=== PATIENT | female | born 1945 | race Caucasian/White ===

== ENCOUNTER 2016-06-19 14:18 | Outpatient (CLI) ==
--- NOTE | 2016-06-19 15:00 | DI ---
EXAM: Chest two view, frontal and lateral views. HISTORY: Cough. COMPARISON: 11/20/2014. FINDINGS: The heart size is normal. Atherosclerotic calcifications are present. There is no pulmo nary vascular congestion. The lungs are clear. No pleural effusion or pneumothorax is seen. No ac [place] osseous abnormality identified. Since the prior study, there has been no significant interval c daquan. IMPRESSION: No acute cardiopulmonary process.
== END 2016-06-19 14:19 | disposition home or self-care (01) ==
LOC: RAD 14:18
PROVIDERS: ATTEND Family Medicine
DX: R05 Cough (principal)

== ENCOUNTER 2016-10-26 08:55 | Outpatient (CLI) ==
--- NOTE | 2016-10-26 10:08 | MAMMO ---
EXAM: Bilateral digital screening mammogram History: Screening Comparison: Bilateral mammogram 05/22/2015 Findings: MLO and CC views of bilateral breasts demonstrate scattered fibroglandular breast parenchy ma. There are no dominant masses, no suspicious microcalcifications and no architectural distortions Impression: Benign stable mammogram. Recommend followup routine screening mammography in 1 year to d ocument stability. BIRADS 2
== END 2016-10-26 08:56 | disposition home or self-care (01) ==
LOC: RAD 08:55
PROVIDERS: ATTEND Family Medicine
DX: Z12.31 Encounter for screening mammogram for malignant neoplasm of breast (principal)
CPT/HCPCS: 77067

== ENCOUNTER 2017-10-28 10:10 | Outpatient (CLI) ==
--- NOTE | 2017-10-29 07:38 | MAMMO ---
EXAM: Digital screening mammogram with CAD and tomosynthesis HISTORY: Screening mammogram COMPARISON: Mammogram 10/26/2016 and 05/22/2015 FINDINGS: Bilateral CC and MLO views of the breasts were performed digitally and demonstrate heterog eneously dense breast density. Vascular calcifications and benign punctate calcifications are redemon strated and relatively unchanged. There is a small cluster of calcifications in the central left dangelo st 5.4 cm from the nipple. These have changed and increased in comparison to prior study. IMPRESSION: Changing cluster calcifications in the central left breast RECOMMENDATION: Diagnostic left breast mammogram and spot compression views. Ultrasound may be obtained as clinicall y indicated. BIRADS category 0: Needs further evaluation
== END 2017-10-28 10:11 | disposition home or self-care (01) ==
LOC: RAD 10:10
PROVIDERS: ATTEND Family Medicine
DX: Z12.31 Encounter for screening mammogram for malignant neoplasm of breast (principal)
CPT/HCPCS: 77067

== ENCOUNTER 2017-11-01 09:30 | Outpatient (CLI) ==
--- NOTE | 2017-11-01 10:05 | MAMMO ---
EXAM: Left digital diagnostic mammogram History: Left breast calcifications. Comparison: Screening mammogram 10/28/2017 Findings: Left breast density is heterogeneous. Additional spot magnification views of the left keanu ast confirm a cluster of microcalcifications within the upper-outer quadrant of the left breast. No d ominant masses. Impression: Clustered microcalcifications within the upper-outer quadrant of the left breast are katarina picious for malignancy. Recommend further evaluation with stereotactic guided breast biopsy BIRADS 4
== END 2017-11-01 09:31 | disposition home or self-care (01) ==
LOC: RAD 09:30
PROVIDERS: ATTEND Family Medicine
DX: R92.8 Other abnormal and inconclusive findings on diagnostic imaging of breast (principal)

== ENCOUNTER 2017-12-21 07:16 | Day surgery (SDC) | payer OTHER ==
[2017-12-21] MEDS ORDERED: LIDOCAINE 1% 20 ML MDV ID STA (07:46)
[2017-12-21] MEDS ORDERED: VERSED ONE (08:30)
[2017-12-21] MEDS ORDERED: LIDOCAINE HCL 2% LUER-JET ONE (08:30)
[2017-12-21] MEDS ORDERED: DIPRIVAN 20 ML VIAL IVP ONE (08:30)
--- NOTE | 2017-12-22 11:18 | OP ---
INDICATIONS FOR PROCEDURE: 72-year-old female has been having some nausea early in the mornings. She started taking Zantac at nighttime along with her morning PPI and she tells me she has done better with this regimen although she had one episode of nausea after she ate lunch (it was a couple hours afterwards) . She presents for an endoscopy. MEDICATIONS: SEE ANESTHESIA NOTES. PROCEDURE: ENDOSCOPY, SHOSHANA BIOPSY. REPORT: The risks, benefits, alternatives and limitations were discussed in detail with the patient. Informed consent was obtained. After adequate sedation was achieved, the video endoscope was introduced in the posterior pharynx and esophagus under direct vision and easily advanced down to the second portion of the duodenum. I then slowly withdrew. The duodenal mucosa appeared unremarkable as did the duodenal bulb. The antrum and body were relatively unremarkable and there was minimal erythema in the antrum. Two biopsies from the antrum and one from the body obtained for H. Pylori testing. The scope was retroflexed to look at the cardia and fundus which was unremarkable. The scope was anteflexed and withdrawn back through the esophagus which was unremarkable. The patient tolerated the procedure well with stable vital signs and pulse oximetry throughout. IMPRESSION: 1. UNREMARKABLE ENDOSCOPY EXAM. RECOMMENDATIONS: 1. Await H.Pylori results. 2. Small meals throughout the day. 3. I will have her continue her morning PPI therapy and HII payton at night time. 4. Strongly advise weight loss and diabetes control. 5. Will have her come back to the office in six weeks to see how she is doing with the above measures. CC: DR. KARIS RAMOS
[2017-12-23 14:15] VITALS: BP 128/67
== END 2017-12-21 09:35 | disposition home or self-care (01) ==
LOC: SURG 07:16
PROVIDERS: ATTEND Internal Medicine Gastroenterology
DX: R11.2 Nausea with vomiting, unspecified (principal)
CPT/HCPCS: 87339

== ENCOUNTER 2018-05-18 08:52 | Outpatient (CLI) | payer OTHER ==
--- NOTE | 2018-05-18 09:42 | MAMMO ---
EXAM: Digital diagnostic mammogram with tomosynthesis HISTORY: Breast calcifications, prior benign biopsy reported at outside institution COMPARISON: 11/01/2016 FINDINGS: Digital MLO and CC views of the left t breast were performed. Tomosynthesis was performe d. There are scattered fibroglandular densities. There is a biopsy clip in the left breast in the r egion of previously seen calcifications. Calcifications no longer present in this region. Scattered benign calcifications present in the left breast. No mass or area of distortion. IMPRESSION: 1. Benign left breast mammogram. 2. Annual screening mammogram is recommended in 6 months. BIRADS category 2, negative examination
== END 2018-05-18 08:53 | disposition home or self-care (01) ==
LOC: RAD 08:52
PROVIDERS: ATTEND Specialist
DX: R92.8 Other abnormal and inconclusive findings on diagnostic imaging of breast (principal)

== ENCOUNTER 2022-10-05 06:29 | Observation (INO) ==
[2022-10-05] MEDS ORDERED: NITROSTAT SL PRN ×2 (06:34→10:13)
[2022-10-05] MEDS ORDERED: SODIUM CHLORIDE 1,000 ML IV STA (06:34)
[2022-10-05 06:43] LABS: BASOPHILS % (AUTO) 0.2 % (0.0-3.0); EOSINOPHILS # (AUTO) 0.1 K/ul (0.0-0.7); HEMATOCRIT 37.5 % (37.0-47.0); HEMOGLOBIN 11.3 g/dl (12.0-16.0); IMMATURE GRANULOCYTE # (AUTO) 0.1 (0.0-1.0); IMMATURE GRANULOCYTE % (AUTO) 0.7 % (0.0-5.0); LYMPHOCYTES # (AUTO) 2.1 K/uL (0.60-3.4); LYMPHOCYTES % (AUTO) 23.8 (10.0-50.0); MEAN CORPUSCULAR HGB CONC 30.1 (31.8-35.4); MEAN CORPUSCULAR VOLUME 96.4 fl (81.0-99.0); MONOCYTES # (AUTO) 1.1 K/uL (0.4-2.0); MONOCYTES % (AUTO) 12.2 (0-10); NEUTROPHILS # (AUTO) 5.5 K/ul (2.0-6.9); NEUTROPHILS % (AUTO) 62.1 % (42.2-75.2); PLATELET COUNT 223 10^3/uL (140-440); RDW COEFFICIENT OF VARIATION 16.7 % (11.6-14.8); RED BLOOD COUNT 3.89 10^6/ul (4.20-5.40); WHITE BLOOD COUNT 8.79 K/ul (4.6-10.2)
[2022-10-05] MEDS ORDERED: ASPIRIN CHEWABLE PO ONE (06:45)
--- NOTE | 2022-10-05 06:52 | ED.PDOC ---
General ED Provider: Dr. SANTI HERNADEZ DO Chief Complaint: Chest Pain Stated Complaint: Patient is a 77 yo F here for chest pain Patient arrives afebrile and vitally stable, with elevated blood pressure by POV She awoke with midsternal chest pain radiating up R neck at 5 am today She has a hx of angina and took 3x nitro without relief Patient reports she has had 2 silent heart attacks but no stenting or CABG She reports she went to [facility] over a year ago for the last event, imaging done but no intervention She takes a daily aspirin She has not smoked for 30 years No drugs or alcohol No falls or injuries Patient speaking in full sentences on room air spo2 97% No hemoptysis, no nausea, no diaphoresis no impending doom Time Seen by Provider: 10/05/22 06:34 Information Source: Patient Primary Care Provider: ZO DYSON Nursing and Triage Documentation Reviewed and Agree: Yes Review of Systems Review Of Systems Constitutional: Denies Chills or Fever Eyes: Denies Vision change or Decreased acuity Ears, Nose, Mouth, Throat: Denies Ear discharge or Nose pain Respiratory: Denies Cough, Shortness of Breath or Stridor Cardiac: Reports Chest pain; Denies Edema, Palpitations or Syncope GI: Denies Constipated or Diarrhea : Denies Dysuria or Discharge Musculoskeletal: Denies Back pain or Muscle stiffness Skin: Denies Change in color or Rash Neurological: Denies Anxiety or Depressed Endocrine: Reports No symptoms; Denies Excessive sweating Hematologic/Lymphatic: Reports No symptoms; Denies Anemia All Other Systems: Reviewed and Negative [facility] Medical History Diabetes mellitus E11.9 - Type 2 diabetes mellitus without complications (ICD-10) History of myocardial infarction I25.2 - Old myocardial infarction (ICD-10) Hypertension I10 - Essential (primary) hypertension (ICD-10) Macular degeneration H35.30 - Unspecified macular degeneration (ICD-10) Family History Mother DVT (deep venous thrombosis) Social History Smoking and tobacco status: Former smoker Surgical History History of musculoskeletal system surgery Z98.890 - Other specified postprocedural states (ICD-10) Status post arterial stent Z95.9 - Presence of cardiac and vascular implant and graft, unspecified (ICD-10) Status post hysterectomy Z90.710 - Acquired absence of both cervix and uterus (ICD-10) Status post tonsillectomy Z90.89 - Acquired absence of other organs (ICD-10) Physical Exam Physical Exam Appearance: Reports Well-appearing and Well-nourished Ill-appearing: Not Applicable Pain Distress: Not Applicable Eyes: Reports ANTOINETTE and EOMI ENT: Reports Ears normal and Nose normal Neck: Supple Respiratory: Reports Airway patent and Breath sounds clear; Denies Wheezes Cardiovascular: Reports RRR, Pulses normal and No rub; Denies Murmur GI/: Reports Soft and Nontender Musculoskeletal: Reports Normal strength and ROM intact Skin: Reports Warm and Dry Neurological: Reports Sensation intact and Motor intact Psychiatric: Reports Affect appropriate and Mood appropriate Interpretation EKG Interpretation EKG Interpretation By: ED Physician Time of EKG #1: 06:51 Rate: Normal Rhythm: Sinus Ectopy: None [place]: NL ST Segment: Normal Interpretation: NSR rate 67 no stemi qt wnl EKG Interpretation By: ED Physician Time of EKG #2: 09:09 Rate: Normal Rhythm: Sinus ST Segment: Normal EKG Interpretation: NSR rate 71 no stemi qtc wnl Radiology Interpretation Radiology Interpretation By: ED Physician Radiology Results: Negative Exam Interpreted: CXR Xray Comments: no pneumothroax no gross consolidations Critical Care Note Critical Care Note Total Critical Care Time (mins): 0 Course Course 10/05/22 06:37 10/05/22 06:37 Orders, Labs, Meds: Lab Review 10/05/22 10/05/22 10/05/22 04:56 06:37 09:19 WBC 8.79 RBC 3.89 L Hgb 11.3 L Hct 37.5 MCV 96.4 MCH 29.0 MCHC 30.1 L RDW Coeff of Anai 16.7 H Plt Count 223 Immature Gran % (Auto) 0.7 Neut % (Auto) 62.1 Lymph % (Auto) 23.8 [place] % (Auto) 12.2 H Eos % (Auto) 1.0 Baso % (Auto) 0.2 Neut # (Auto) 5.5 Lymph # (Auto) 2.1 [place] # (Auto) 1.1 Eos # (Auto) 0.1 Baso # (Auto) 0.0 Immature Gran # (Auto) 0.1 Sodium 137.8 Potassium 4.11 Chloride 102.5 Carbon Dioxide 28.6 Anion Gap 10.81 BUN 17.6 H Creatinine 0.53 L Estimated GFR (MDRD) 112.00 BUN/Creatinine Ratio 33.20 Glucose 191.9 H Calcium 8.80 Total Bilirubin 0.34 AST 34.9 ALT 18.2 Alkaline Phosphatase 86.1 Total Creatine Kinase 28.8 L Troponin I < 0.012 < 0.012 NT-Pro-B Natriuret Pep 84 Total Protein 6.96 Albumin 4.13 Globulin 2.83 Albumin/Globulin Ratio 1.45 Orders Category Date Time Status PLACE PATIENT OBSERVATION .TO MEDSURG (MONITORED BED ADMISSION 10/05/22 10:13 Active ) STRESS ECHO SESTAMIBI Routine CARDIO 10/06/22 06:00 Ordered EKG-(ED ONLY) Stat CARDIO 10/05/22 06:34 Completed EKG-(ED ONLY) Stat CARDIO 10/05/22 09:02 Completed INTAKE & OUTPUT Q8HR CARE 10/05/22 10:13 Active NPO REMINDER: IMAGING ONCE CARE 10/05/22 07:28 Completed TELEMETRY MONITORING TELE CARE 10/05/22 10:13 Active VITAL SIGNS Q4HR CARE 10/05/22 10:14 Active ED ARTIFICIAL FLOWER MAKER APPLIED .ONCE EMERGENCY 10/05/22 06:34 Active ED IV/MEDIPORT/POWERPORT .ONCE EMERGENCY 10/05/22 06:34 Active CBC W/ AUTO DIFF DAILY@0600 LAB 10/06/22 06:00 Ordered CBC W/ AUTO DIFF DAILY@0600 LAB 10/07/22 06:00 Ordered CBC W/ AUTO DIFF Stat LAB 10/05/22 06:37 Completed COMPREHENSIVE METABOLIC PANEL DAILY@0600 LAB 10/06/22 06:00 Ordered COMPREHENSIVE METABOLIC PANEL DAILY@0600 LAB 10/07/22 06:00 Ordered COMPREHENSIVE METABOLIC PANEL Stat LAB 10/05/22 06:37 Completed CREATINE KINASE Stat LAB 10/05/22 06:37 Completed LIPASE Timed LAB 10/05/22 16:05 Completed PROBNP ED [NT-PROBNP(ED)] Stat LAB 10/05/22 04:56 Completed TROPONIN I Stat LAB 10/05/22 06:37 Completed TROPONIN I Stat LAB 10/05/22 09:19 Completed TROPONIN I Timed LAB 10/05/22 16:05 Completed TROPONIN I Timed LAB 10/05/22 21:30 Ordered TROPONIN I Timed LAB 10/06/22 06:00 Ordered 0.9 % Sodium Chloride [Saline Flush] Meds 10/05/22 06:34 Active 1 syr IVF PRN PRN 0.9 % Sodium Chloride [Saline Flush] Meds 10/05/22 13:00 Active 1 syr IVF Q8HR Acetaminophen [Tylenol] Meds 10/05/22 09:03 Discontinued 650 mg PO ONCE ONE Acetaminophen [Tylenol] Meds 10/05/22 10:13 Active 650 mg PO Q4H PRN Aspirin [Aspirin Chewable] Meds 10/05/22 06:45 Discontinued 324 mg PO ONCE ONE Aspirin [Aspirin EC] Meds 10/06/22 08:30 Active 81 mg PO DAILYWM Carvedilol [Coreg] Meds 10/05/22 07:35 Discontinued 12.5 mg PO ONCE ONE Nitroglycerin [Nitrostat] Meds 10/05/22 06:34 Discontinued 0.4 mg SL Q5MIN X 3 DOSES PRN Nitroglycerin [Nitrostat] Meds 10/05/22 10:13 Active 0.4 mg SL Q5MIN X 3 DOSES PRN Sodium Chloride 0.9% [Sodium Chloride] 1,000 ml Meds 10/05/22 06:34 Discontinued IV 90 mls/hr CHEST, 1V AP ONLY Stat RADS 10/05/22 06:[address] CHEST PE PROTOCOL Stat RADS 10/05/22 07:28 Completed SEST HRT REST/STRESS/ NUC MED Routine RADS 10/06/22 10:15 Ordered Medications Generic Name Dose Route Start Last Admin Trade Name Freq PRN Reason Stop Dose Admin Acetaminophen 650 mg 10/05/22 10:13 Acetaminophen 325 Mg Tablet PO Q4H PRN pain Aspirin 81 mg 10/06/22 08:30 Aspirin 81 Mg Tablet. PO DAILYWM CLEM Buspirone HCl 5 mg 10/05/22 21:00 Buspirone Hcl 10 Mg Tablet PO BID CLEM Clonidine 0.2 mg 10/05/22 21:00 Clonidine Hcl 0.1 Mg Tablet PO BEDTIME [facility] Clopidogrel Bisulfate 75 mg 10/05/22 14:35 10/05/22 14:58 Clopidogrel Bisulfate 75 Mg Tablet PO 75 mg DAILY CLEM Administration Enoxaparin Sodium 40 mg 10/06/22 09:00 Enoxaparin Sodium 40 Mg/0.4 Ml Syr SUBCUT DAILY CLEM Eplerenone 25 mg 10/06/22 09:00 Eplerenone 25 Mg Tablet PO DAILY CLEM Famotidine 20 mg 10/05/22 16:00 10/05/22 16:26 Famotidine Inj 20 Mg/2 Ml Vial IVP 20 mg Q12HR CLEM Administration Hydralazine HCl 10 mg 10/05/22 11:29 Hydralazine Hcl 20 Mg/Ml Sdv IVP Q6H PRN Hypertension Insulin Glargine 30 unit 10/06/22 09:00 Insulin Glargine,Hum.Rec.Anlog 100 Units/Ml SUBCUT DAILY [facility] Insulin Human Lispro 0 unit 10/05/22 11:29 Insulin Lispro 100 Unit/Ml (3 Ml) Vial SUBCUT PRN PRN Hyperglycemia Protocol Irbesartan 150 mg 10/05/22 15:00 10/05/22 14:58 Irbesartan 150 Mg Tablet PO 150 mg DAILY CLEM Administration Morphine Sulfate 2 mg 10/05/22 12:49 10/05/22 13:18 Morphine Sulfate 2 Mg/Ml Syringe IVP 2 mg Q6H PRN Administration Pain Nitroglycerin 0.4 mg 10/05/22 10:13 Nitroglycerin 0.4 Mg Tab.Subl SL Q5MIN X 3 DOSES PRN Chest Pain Ondansetron HCl 4 mg 10/05/22 12:49 10/05/22 13:16 Ondansetron Hcl/Pf 4 Mg/2 Ml Sdv IVP 4 mg Q6H PRN Administration Nausea / Vomiting Rosuvastatin Calcium 10 mg 10/05/22 21:00 Rosuvastatin Calcium 10 Mg Tablet PO BEDTIME CLEM Sodium Chloride 1 syr 10/05/22 06:34 10/05/22 07:00 0.9% Sodium Chloride 10 Ml Disp.Syrin IVF 1 syr PRN PRN Administration To flush IV Sodium Chloride 1 syr 10/05/22 13:00 10/05/22 13:21 0.9% Sodium Chloride 10 Ml Disp.Syrin IVF 1 syr Q8HR CLEM Administration Tizanidine HCl 2 mg 10/05/22 14:29 Tizanidine Hcl 4 Mg Tablet PO BEDTIME PRN muscle spasms Tramadol HCl 50 mg 10/05/22 14:29 Tramadol Hcl 50 Mg Tablet PO BEDTIME PRN pain Discontinued Medications Generic Name Dose Route Start Last Admin Trade Name Kandis PRN Reason Stop Dose Admin Acetaminophen 650 mg 10/05/22 09:03 10/05/22 09:07 Acetaminophen 325 Mg Tablet PO 10/05/22 09:04 650 mg ONCE ONE Administration Al Hydroxide/Mg Hydroxide 30 ml 10/05/22 15:44 10/05/22 16:28 Mag Hydrox/Al Hydrox/Simeth 30 Ml Cup PO 10/05/22 15:45 Not Given ONCE ONE Aspirin 324 mg 10/05/22 06:45 10/05/22 06:49 Aspirin 81 Mg Tab.Chew PO 10/05/22 06:46 324 mg ONCE ONE Administration Carvedilol 12.5 mg 10/05/22 07:35 10/05/22 07:41 Carvedilol 12.5 Mg Tablet PO 10/05/22 07:36 12.5 mg ONCE ONE Administration Sodium Chloride 1,000 mls @ 90 mls/hr 10/05/22 06:34 10/05/22 07:00 Sodium Chloride IV 10/05/22 17:40 90 mls/hr .Q11H7M STA Administration Nitroglycerin 0.4 mg 10/05/22 06:34 Nitroglycerin 0.4 Mg Tab.Subl SL Q5MIN X 3 DOSES PRN Chest Pain Pantoprazole Sodium 40 mg 10/05/22 15:03 10/05/22 15:19 Pantoprazole Sodium 40 Mg Vial IVP 10/05/22 15:04 40 mg ONCE ONE Administration Tramadol HCl 50 mg 10/05/22 15:03 10/05/22 15:18 Tramadol Hcl 50 Mg Tablet PO 10/05/22 15:04 50 mg ONCE ONE Administration Vital Signs: Temp Pulse Resp BP Pulse Ox 10/05/22 06:30 97.7 F 70 18 215/97 H 97 MDM: patient is a 77 yo F here for chest pain Patient afebrile and vitally stable Hx from patient chart review by me Exam reassuring 3+ labs and 3 image results reviewed by me WDX: Chest pain rule out myocardial infarction acute condition high complexity DDX: I considered stemi, PE, pneumothorax but these were not found Negative troponin x2 in ED Patient amenable to admission We discussed all findings Consult to Hospitalist Team Patietn amenable to observation BYRON Risk Score BYRON Risk Score: Risk Score Odds of by 30D 0 0.1 (0.1-0.2) 1 0.3 (0.2-0.3) 2 0.4 (0.3-0.5) 3 0.7 (0.6-0.9) 4 1.2 (1.0-1.5) 5 2.2 (1.9-2.6) 6 3.0 (2.5-3.6) 7 4.8 (3.8-6.1) Discharge Plan Discharge Patient Disposition: PLACED OBSERVATION Discharge Problem: Acute hyperglycemia, Lung nodule, Chest pain, rule out acute myocardial infarction, Celiac artery stenosis Did you review [place] [employer] PROCESSING CLERK for ALL controlled substances?: Not Applicable ED Provider: SANTI HERNADEZ Condition: Fair Physician Progress Note: []
[2022-10-05 06:53] LABS: ALANINE AMINOTRANSFERASE 18.2 U/L (0-35); ALBUMIN 4.13 g/dL (3.5-5.0); ALKALINE PHOSPHATASE 86.1 U/L (53-141); ASPARTATE AMINO TRANSFERASE 34.9 U/L (14-36); BILIRUBIN,TOTAL 0.34 mg/dL (0.2-1.3); BLOOD UREA NITROGEN 17.6 mg/dL (7-17); CARBON DIOXIDE 28.6 mmol/L (22-30.0); CHLORIDE 102.5 mmol/L (98-107); CREATINE KINASE 28.8 U/L (30-135); CREATININE 0.53 mg/dL (0.60-1.30); GLUCOSE 191.9 mg/dL (74-106); POTASSIUM 4.11 mmol/L (3.5-5.1); SODIUM 137.8 mmol/L (134.5-145); TOTAL PROTEIN 6.96 g/dL (6.3-8.2)
[2022-10-05 07:12] LABS: TROPONIN I < 0.012 ng/ml (0.0000-0.120)
--- NOTE | 2022-10-05 07:17 | DI ---
EXAM: CHEST RADIOGRAPH TECHNIQUE: Single frontal chest radiograph. HISTORY: Chest pain. COMPARISON: 07/02/2020 FINDINGS: EKG leads project over the chest. No pulmonary infiltrate is identified. No pleural effusion or pneumothorax is seen. Borderline cardiomegaly. No acute displaced rib fractures are identified. IMPRESSION: 1. No acute findings in the chest.
[2022-10-05] MEDS ORDERED: COREG PO ONE (07:35)
--- NOTE | 2022-10-05 08:43 | CT ---
EXAM: CHEST CTA WITH CONTRAST (PULMONARY ARTERY) HISTORY: Chest pain. TECHNIQUE: CTA acquisition of the chest from the thoracic inlet to the upper abdomen following IV con trast administration timed to filling of the pulmonary artery. 3D/MIP/VR images were utilized. CT Dose Reduction Techniques Employed: Yes. COMPARISON: 10/17/2014 FINDINGS: Adequate opacification of the pulmonary arteries. No pulmonary embolus is identified. No enlarged m ediastinal, hilar, or axillary nodes are identified. 2.3 x 2.1 cm right cardiophrenic angle cyst. C oronary artery calcifications, again noted. Borderline cardiomegaly. No significant pericardial flu id/thickening. No pleural fluid. Visualized portions of the upper abdomen included in this examination of the chest show interval chol ecystectomy. Large amount of calcified plaque of the celiac artery origin, resulting in hemodynamica lly significant stenosis. Lung window images again show mild to moderate emphysema, grossly stable. Stable 1.6 x 1.1 cm irregu lar parenchymal opacity of the right apex, most consistent with focal fibrosis. Interval development of 4 mm nodule with adjacent tubular structure in the right lower lobe superior segment on image num patrick 50. Interval development of 2 mm nodule in the right lower lobe on image number 78. Mild depend ent atelectasis of both lower lobes and mild subsegmental atelectasis with parenchymal bands of the l eft lower lobe and lingula. No consolidati on or significant ground-glass. Bone window images show no significant lytic or sclerotic bone lesions. IMPRESSION: 1. No pulmonary embolus is identified. 2. No acute findings in the chest. 3. Mild to moderate emphysema, about the same. 4. Interval development of a 4 mm nodule with adjacent tubular structure in the right lower lobe sup erior segment. Findings might be secondary to mucous plugging. Nodule or obstructing endobronchial lesion also possible. Follow-up CT chest in 3 months is recommended. 5. Interval development of 2 mm nodule in the right lower lobe. Attention to this finding in the fo llow-up scan as well. 6. 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 CTA abdomen would better asses s. All CT scans are performed using dose optimization techniques as appropriate to the performed exam an d include at least one of the following: Automated exposure control, adjustment of the mA and/or kV according t o size, and the use of iterative reconstruction technique.
[2022-10-05] MEDS ORDERED: TYLENOL PO ONE (09:03)
--- NOTE | 2022-10-05 10:44 | PCM ---
Date of Service Date Seen by Provider: 10/05/22 Time Seen by Provider: 12:40 Admit Day/Time Admission Date: 10/05/22 Admission Time: 10:13 Reason for Admission Chief Complaint: CHEST PAIN Hospital Provider Hospital Provider: DENICE PEREYRA PA-C, [facility] [place] Primary Care Physician Primary Care Physician: ZO DYSON History of Present Illness History of Present Illness: Patient is a 77-year-old female with past medical history of KS, diabetes, hypertension, vascular disease, psoriatic arthritis, hyperlipidemia who presented to the ER with complaints of chest pain since 5 AM. She describes it as sharp all across her chest radiating to her back and her neck and her left shoulder. She took 3 nitro at home without any relief. She feels like it could be just muscular. In the ER she had a negative work-up. 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 Troponin and EKG negative so far. On my evaluation patient is still complaining of the pain. She states that it improved slightly and now is back. She was also very hypertensive in the ER which has improved. Case Discussed With Case Discussed With: Patient's case was discussed with the ER Physicians, Dr. Zuñiga. [facility] Medical History Diabetes mellitus E11.9 - Type 2 diabetes mellitus without complications (ICD-10) History of myocardial infarction I25.2 - Old myocardial infarction (ICD-10) Hypertension I10 - Essential (primary) hypertension (ICD-10) Macular degeneration H35.30 - Unspecified macular degeneration (ICD-10) Surgical History History of musculoskeletal system surgery Z98.890 - Other specified postprocedural states (ICD-10) Status post arterial stent Z95.9 - Presence of cardiac and vascular implant and graft, unspecified (ICD-10) Status post hysterectomy Z90.710 - Acquired absence of both cervix and uterus (ICD-10) Status post tonsillectomy Z90.89 - Acquired absence of other organs (ICD-10) Family History Mother DVT (deep venous thrombosis) Social History Smoking and tobacco status: Former smoker Allergies Allergies Allergy/AdvReac Type Severity Reaction Status Date / Time amoxicillin trihydrate AdvReac Hives Verified 10/05/22 06:49 [From Augmentin] astemizole [From Hismanal] AdvReac UNSURE Verified 10/05/22 06:49 butalbital [From Esgic] AdvReac Nausea Verified 10/05/22 06:49 celecoxib [From Celebrex] AdvReac Diarrhe/ Verified 10/05/22 06:49 ELEVATED BLOOD PRESSUREa codeine AdvReac Nausea Verified 10/05/22 06:49 diclofenac potassium AdvReac MUSCLE PAIN Verified 10/05/22 06:49 [From Cataflam] ezetimibe [From Zetia] AdvReac UNSURE Verified 10/05/22 06:49 fenofibrate nanocrystallized AdvReac UNSURE Verified 10/05/22 06:49 [From Tricor] fenofibrate,micronized AdvReac UNSURE Verified 10/05/22 06:49 [From Tricor] gemfibrozil [From Lopid] AdvReac UNSURE Verified 10/05/22 06:49 hydromorphone HCl AdvReac SOB, Verified 10/05/22 06:49 [From Dilaudid] TONGUE SWELLING meperidine HCl [From Demerol] AdvReac LEDESMA, N/V, Verified 10/05/22 06:49 DIZZINESS morphine AdvReac Nausea Verified 10/05/22 06:49 nabumetone [From Relafen] AdvReac ELEVATED Verified 10/05/22 06:49 BLOOD PRESSURE naproxen [From Naprosyn] AdvReac ELEVATES Verified 10/05/22 06:49 BLOOD PRESSURE oxycodone HCl [From Percodan] AdvReac N/V Verified 10/05/22 06:49 oxycodone terephthalate AdvReac Nausea Verified 10/05/22 06:49 [From Percodan] potassium clavulanate AdvReac Hives Verified 10/05/22 06:49 [From Augmentin] topiramate [From Topamax] AdvReac Unknown Verified 10/05/22 06:49 Current Medications Home Medications buspirone 5 mg tablet 5 mg PO BID 11/24/14 [History Confirmed 10/05/22 Last Taken 10/04/22] carvedilol 12.5 mg tablet (Coreg) 12.5 mg PO BID 01/08/14 [History Confirmed 10/05/22 Last Taken 10/05/22] rosuvastatin 10 mg tablet (Crestor) 10 mg PO BEDTIME 01/08/14 [History Confirmed 10/05/22 Last Taken 10/04/22] cholecalciferol (vitamin D3) 125 mcg (5,000 unit) tablet 5,000 unit PO BID 03/27/14 [History Confirmed 10/05/22 Last Taken 10/04/22] clonidine HCl 0.2 mg tablet 0.2 mg PO BEDTIME 03/27/14 [History Confirmed 10/05/22 Last Taken 10/04/22] eplerenone 25 mg tablet (Inspra) 25 mg PO DAILY 03/27/14 [History Confirmed 10/05/22 Last Taken 10/04/22] folic acid 1 mg tablet 2 mg PO DAILY 03/27/14 [History Confirmed 10/05/22 Last Taken 10/04/22] irbesartan 150 mg tablet (Avapro) 150 mg PO DAILY 03/27/14 [History Confirmed 10/05/22 Last Taken 10/04/22] krill oil 500 mg capsule 500 mg PO BEDTIME 03/27/14 [History Confirmed 10/05/22 Last Taken 10/04/22] methotrexate sodium 2.5 mg tablet 8 tab PO WEEKLY 03/27/14 [History Confirmed 10/05/22 Last Taken 10/04/22] rabeprazole 20 mg tablet,delayed release (AcipHex) 20 mg PO BEDTIME 03/27/14 [History Confirmed 10/05/22 Last Taken 10/04/22] aspirin 81 mg tablet,delayed release (Adult Low Dose Aspirin) 81 mg PO BEDTIME 12/21/17 [History Confirmed 10/05/22 Last Taken 10/04/22] acetaminophen 500 mg tablet 1,000 mg PO Q6H PRN pain 10/05/22 [History Confirmed 10/05/22 Last Taken 10/04/22] clopidogrel 75 mg tablet 75 mg PO DAILY 10/05/22 [History Confirmed 10/05/22 Last Taken 10/04/22] insulin aspart U-100 100 unit/mL (3 mL) subcutaneous pen (Novolog FlexPen U-100 Insulin aspart) 1 sliding scale dose subcut QID PRN ELEVATED BLOOD SUAR 10/05/22 [History Confirmed 10/05/22 Last Taken 10/04/22] insulin glargine 100 unit/mL (3 mL) subcutaneous pen (Basaglar KwikPen U-100 Insulin) 30 unit subcut DAILY 10/05/22 [History Confirmed 10/05/22 Last Taken 10/04/22] ondansetron HCl 4 mg tablet 4 mg PO Q8H PRN N/V 10/05/22 [History Confirmed 10/05/22 Last Taken Unknown] secukinumab 150 mg/mL subcutaneous pen injector (Cosentyx Pen 300 mg/2 Pens () 150 mg subcut MONTHLY 10/05/22 [History Confirmed 10/05/22 Last Taken 09/20/22] tizanidine 2 mg tablet 2 mg PO BEDTIME PRN spasms 10/05/22 [History Confirmed 10/05/22 Last Taken 10/04/22] tramadol 50 mg tablet 50 mg PO BEDTIME PRN pain 10/05/22 [History Confirmed 10/05/22 Last Taken 10/04/22] vit C 250 mg-vit E 200 unit-zinc ox 12.5 xg-ldlute-fvemgo-zeax capsule (ICaps AREDS2) 1 cap PO BID 10/05/22 [History Confirmed 10/05/22 Last Taken 10/04/22] Home Acetaminophen (Acetaminophen 325 Mg Tablet) 650 mg PO Q4H PRN PRN Reason: pain Aspirin (Aspirin 81 Mg Tablet.) 81 mg PO DAILYWM [facility] Buspirone HCl (Buspirone Hcl 10 Mg Tablet) 5 mg PO BID [facility] Clonidine (Clonidine Hcl 0.1 Mg Tablet) 0.2 mg PO BEDTIME [facility] Clopidogrel Bisulfate (Clopidogrel Bisulfate 75 Mg Tablet) 75 mg PO DAILY [facility] Last Admin: 10/05/22 14:58 Dose: 75 mg Enoxaparin Sodium (Enoxaparin Sodium 40 Mg/0.4 Ml Syr) 40 mg SUBCUT DAILY [facility] Eplerenone (Eplerenone 25 Mg Tablet) 25 mg PO DAILY [facility] Famotidine (Famotidine Inj 20 Mg/2 Ml Vial) 20 mg IVP Q12HR [facility] Hydralazine HCl (Hydralazine Hcl 20 Mg/Ml Sdv) 10 mg IVP Q6H PRN PRN Reason: Hypertension Sodium Chloride (Sodium Chloride) 1,000 mls @ 90 mls/hr IV .Q11H7M STA Stop: 10/05/22 17:40 Last Admin: 10/05/22 07:00 Dose: 90 mls/hr Insulin Glargine (Insulin Glargine,Hum.Rec.Anlog 100 Units/Ml) 30 unit SUBCUT DAILY [facility] Insulin Human Lispro (Insulin Lispro 100 Unit/Ml (3 Ml) Vial) 0 unit SUBCUT PRN PRN; Protocol PRN Reason: Hyperglycemia Irbesartan (Irbesartan 150 Mg Tablet) 150 mg PO DAILY [facility] Last Admin: 10/05/22 14:58 Dose: 150 mg Morphine Sulfate (Morphine Sulfate 2 Mg/Ml Syringe) 2 mg IVP Q6H PRN PRN Reason: Pain Last Admin: 10/05/22 13:18 Dose: 2 mg Nitroglycerin (Nitroglycerin 0.4 Mg Tab.Subl) 0.4 mg SL Q5MIN X 3 DOSES PRN PRN Reason: Chest Pain Ondansetron HCl (Ondansetron Hcl/Pf 4 Mg/2 Ml Sdv) 4 mg IVP Q6H PRN PRN Reason: Nausea / Vomiting Last Admin: 10/05/22 13:16 Dose: 4 mg Rosuvastatin Calcium (Rosuvastatin Calcium 10 Mg Tablet) 10 mg PO BEDTIME [facility] Sodium Chloride (0.9% Sodium Chloride 10 Ml Disp.Syrin) 1 syr IVF PRN PRN PRN Reason: To flush IV Last Admin: 10/05/22 07:00 Dose: 1 syr Sodium Chloride (0.9% Sodium Chloride 10 Ml Disp.Syrin) 1 syr IVF Q8HR [facility] Last Admin: 10/05/22 13:21 Dose: 1 syr Tizanidine HCl (Tizanidine Hcl 4 Mg Tablet) 2 mg PO BEDTIME PRN PRN Reason: muscle spasms Tramadol HCl (Tramadol Hcl 50 Mg Tablet) 50 mg PO BEDTIME PRN PRN Reason: pain Discontinued Medications Acetaminophen (Acetaminophen 325 Mg Tablet) 650 mg PO ONCE ONE Stop: 10/05/22 09:04 Last Admin: 10/05/22 09:07 Dose: 650 mg Al Hydroxide/Mg Hydroxide (Mag Hydrox/Al Hydrox/Simeth 30 Ml Cup) 30 ml PO ONCE ONE Stop: 10/05/22 15:45 Aspirin (Aspirin 81 Mg Tab.Chew) 324 mg PO ONCE ONE Stop: 10/05/22 06:46 Last Admin: 10/05/22 06:49 Dose: 324 mg Carvedilol (Carvedilol 12.5 Mg Tablet) 12.5 mg PO ONCE ONE Stop: 10/05/22 07:36 Last Admin: 10/05/22 07:41 Dose: 12.5 mg Nitroglycerin (Nitroglycerin 0.4 Mg Tab.Subl) 0.4 mg SL Q5MIN X 3 DOSES PRN PRN Reason: Chest Pain Pantoprazole Sodium (Pantoprazole Sodium 40 Mg Vial) 40 mg IVP ONCE ONE Stop: 10/05/22 15:04 Last Admin: 10/05/22 15:19 Dose: 40 mg Tramadol HCl (Tramadol Hcl 50 Mg Tablet) 50 mg PO ONCE ONE Stop: 10/05/22 15:04 Last Admin: 10/05/22 15:18 Dose: 50 mg Review of Systems Constitutional: Denies Fever, Chills or Weakness Head: Reports Normocephalic and Atraumatic Throat: Denies Sore Throat or Difficulty Swallowing Cardiovascular: Reports Chest pain and Chest Pressure; Denies Edema Respiratory: Denies Cough or Shortness of air Gastrointestinal: Denies Nausea, Vomiting, Diarrhea or Abdominal pain Musculoskeletal: Reports Joint Stiffness Neurological: Denies Headache, Dizziness, Syncope or Seizure Physical examination Most Recent Vital Signs: Most Recent Vital Signs Temperature 97.7 F 10/05/22 06:30 Temperature Source Infrared 10/05/22 06:30 Pulse Rate 70 10/05/22 06:30 Respiratory Rate 18 10/05/22 06:30 Blood Pressure 215/97 H 10/05/22 06:30 O2 Sat by Pulse Oximetry 97 10/05/22 06:30 Height 5 ft 6 in 10/05/22 06:30 Weight 184 lb 1.376 oz 10/05/22 06:30 Appearance: Positive Well-appearing, Well-nourished, Alert and Oriented x3 and Other (Appears uncomfortable ) Skin: Positive [place], Warm and Good Turgor; Negative Rashes HEENT: Positive Normocephalic and Atraumatic Neck: Positive Supple and Midline Trachea Chest/Lungs: Positive Clear to Auscultation Bilaterally; Negative Rales, Rhonci or Wheezes Heart: Positive RRR and Other (+cannot reproduce pain ) GI/: Positive Soft, Nontender, Bowel Sounds Normal and No Distention Musculoskeletal: Negative Tenderness Extremities: Negative Edema Neurological: Positive Cranial Nerves Intact, Alert, Oriented and Muscle Strength 5/5 in Upper and Lower Extremities Bilaterally Psychiatric: Positive Oriented x4, Appropriate Mood and Appropriate Affect Labs This Visit Labs This Visit: Labs This Visit 10/05/22 10/05/22 10/05/22 04:56 06:37 09:19 WBC 8.79 RBC 3.89 L Hgb 11.3 L Hct 37.5 MCV 96.4 MCH 29.0 MCHC 30.1 L RDW Coeff of Anai 16.7 H Plt Count 223 Immature Gran % (Auto) 0.7 Neut % (Auto) 62.1 Lymph % (Auto) 23.8 Waller % (Auto) 12.2 H Eos % (Auto) 1.0 Baso % (Auto) 0.2 Neut # (Auto) 5.5 Lymph # (Auto) 2.1 Waller # (Auto) 1.1 Eos # (Auto) 0.1 Baso # (Auto) 0.0 Immature Gran # (Auto) 0.1 Sodium 137.8 Potassium 4.11 Chloride 102.5 Carbon Dioxide 28.6 Anion Gap 10.81 BUN 17.6 H Creatinine 0.53 L Estimated GFR (MDRD) 112.00 BUN/Creatinine Ratio 33.20 Glucose 191.9 H Calcium 8.80 Total Bilirubin 0.34 AST 34.9 ALT 18.2 Alkaline Phosphatase 86.1 Total Creatine Kinase 28.8 L Troponin I < 0.012 < 0.012 NT-Pro-B Natriuret Pep 84 Total Protein 6.96 Albumin 4.13 Globulin 2.83 Albumin/Globulin Ratio 1.45 Imaging Imaging: EXAM: CHEST RADIOGRAPH TECHNIQUE: Single frontal chest radiograph. HISTORY: Chest pain. COMPARISON: 07/02/2020 FINDINGS: EKG leads project over the chest. No pulmonary infiltrate is identified. No pleural effusion or pneumothorax is seen. Borderline cardiomegaly. No acute displaced rib fractures are identified. IMPRESSION: 1. No acute findings in the chest. EXAM: CHEST CTA WITH CONTRAST (PULMONARY ARTERY) HISTORY: Chest pain. TECHNIQUE: CTA acquisition of the chest from the thoracic inlet to the upper abdomen following IV contrast administration timed to filling of the pulmonary artery. 3D/MIP/VR images were utilized. CT Dose Reduction Techniques Employed: Yes. COMPARISON: 10/17/2014 FINDINGS: Adequate opacification of the pulmonary arteries. No pulmonary embolus is identified. No enlarged mediastinal, hilar, or axillary nodes are identified. 2.3 x 2.1 cm right cardiophrenic angle cyst. Coronary artery calcifications, again noted. Borderline cardiomegaly. No significant pericardial fluid/thickening. No pleural fluid. Visualized portions of the upper abdomen included in this examination of the chest show interval cholecystectomy. Large amount of calcified plaque of the celiac artery origin, resulting in hemodynamically significant stenosis. Lung window images again show mild to moderate emphysema, grossly stable. Stable 1.6 x 1.1 cm irregular parenchymal opacity of the right apex, most consistent with focal fibrosis. Interval development of 4 mm nodule with adjacent tubular structure in the right lower lobe superior segment on image number 50. Interval development of 2 mm nodule in the right lower lobe on image number 78. Mild dependent atelectasis of both lower lobes and mild subsegmental atelectasis with parenchymal bands of the left lower lobe and lingula. No consolidati on or significant ground-glass. Bone window images show no significant lytic or sclerotic bone lesions. IMPRESSION: 1. No pulmonary embolus is identified. 2. No acute findings in the chest. 3. Mild to moderate emphysema, about the same. 4. Interval development of a 4 mm nodule with adjacent tubular structure in the right lower lobe superior segment. Findings might be secondary to mucous plugging. Nodule or obstructing endobronchial lesion also possible. Follow-up CT chest in 3 months is recommended. 5. Interval development of 2 mm nodule in the right lower lobe. Attention to this finding in the follow-up scan as well. 6. 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 CTA abdomen would better assess. Review Statement Review Statement: I have independently reviewed and interpreted the labs/EKGs/imaging that were ordered by the ER provider. I have reviewed all outside records that are available currently in our EMR including imaging/notes/labs from previous visits. Plan Plan: 1. Chest pain - Trend trops. Repeat EKGs. Nitro prn for chest pain. Stress echo with NM ordered for tomorrow (no NM available today.). Echo ordered. Records reviewed as below. Hold beta payton today. 2. Hypertensive urgency - Patient given PO meds in ER. Will reevaluate once she's been on the floor. Hydralazine IV prn w/ parameters ordered. 3. History of CAD and PAD - Sees [facility]. Records as below. Continue home meds. 4. DMT2, insulin dependent - Continue home insulin, humalog sliding scale, accuchecks achs. 5. Hyperlipidemia - Continue home meds 6. Psoriatic arthritis - Continue home meds 7. History of takotsubo cardiomyopathy - Continue home meds 8. Celiac artery stenosis - F/u with vascular outpatient. 9. Lung nodules - F/u outpatient Reviewed [facility] records. Cardiology notes - Inna Hall, [employer] SALES REPRESENTATIVE - Had takotsubo cardiomyopathy in 2010, now resolved. EF 56-60% 10/2021. Lexiscan 08/2021 showed moderate lateral infarction w/o significant areas of ischemia, lateral wall hypokinesis consistent with prior lateral infarction, and LVEF of 41%. Vascular notes - Dr. Gerardo Roque and Osiris Sevilla [employer] SALES REPRESENTATIVE - Hx of significant carotid artery disease. Right TCAR on 01/2022 and left TCAR 04/09. Maintained on asa, plavix, and crestor. DVT Prophylaxis: Lovenox Time Spent: Greater than 80 minutes spent with patient, 50% of the time spent with this patient was devoted to counseling and coordination of care. Advanced Care Planning: Full Code 3 minutes spent discussing advance care planning. Admit to: Obs Discussed Plan of Care with Dr. Ruben Lau. Medications Medication Orders: Medications Ordered Category Date Time Status 0.9 % Sodium Chloride [Saline Flush] Meds 10/05/22 06:34 Active 1 syr IVF PRN PRN 0.9 % Sodium Chloride [Saline Flush] Meds 10/05/22 13:00 Active 1 syr IVF Q8HR Acetaminophen [Tylenol] Meds 10/05/22 10:13 Active 650 mg PO Q4H PRN Aspirin [Aspirin EC] Meds 10/06/22 08:30 Active 81 mg PO DAILYWM Nitroglycerin [Nitrostat] Meds 10/05/22 10:13 Active 0.4 mg SL Q5MIN X 3 DOSES PRN Sodium Chloride 0.9% [Sodium Chloride] 1,000 ml Meds 10/05/22 06:34 Active IV 90 mls/hr
[2022-10-05] MEDS ORDERED: HYDRALAZINE HCL IVP PRN (11:29)
[2022-10-05 12:03] VITALS: BMI 29.2
[2022-10-05] MEDS ORDERED: ZOFRAN 4 MG/2 ML IVP PRN (12:49)
[2022-10-05] MEDS ORDERED: MORPHINE 2 MG/ML SYRINGE IVP PRN (12:49)
--- NOTE | 2022-10-05 14:27 | ECHO2D ---
Date of Exam: 10/05/2022 Ordering Physician: HOSPITALIST DENICE PEREYRA / DR. DYSON Room #: 119 Reason for Echo: CHEST PAIN Murmurs: SYSTOLIC GRADE I/ SYSTOLIC EJECTION MURMUR RIGHT STERNAL BORDER M-Mode Normal Adult Results LV Dimensions Normal Adult Results AoV Opening excursions >1.6 1.4 LVEDD-base- 3.5-5.8 4.8 Ao root dimensions 2.0-3.7 3.4 LVESD-base- 3.1-4.6 L. Atrium dimensions 1.9-3.8 4.3 Post. Wall thickness 0.8-1.1 1.2 IV septum (thickness) 0.7-1.2 1.3 Post. Wall excursion 0.72-1.3 NORMAL Septal motion 0.9 Systolic motion R. Ventricular cavity 1.5-2.0 NORMAL LVEF 60% 51% Paradoxical septal wall motion NORMAL 2-D : ENLARGED LEFT ATRIAL CAVITY, CALCIFIC AORTIC VALVES. GOOD CUSP SEPERATION. LEFT VENTRICULAR CONTRACTILITY NORMAL. LEFT VENTRICLE SIZE NORMAL. NO EFFUSION. NO THROMBUS. PLANIMETRY AORTIC ARCH: 1.88 cm2. M-MODE: MV: CALCIFIC MITRAL VALVE ANNULUS AV: CALCIFIC AORTIC VALVE - MILD AORTIC STENOSIS TV: NORMAL PV: NORMAL CHAMBER SIZE: ENLARGED LEFT ATRIAL CAVITY WALL MOTION: NORMAL PERICARDIUM: NORMAL INTERPRETATION: 1. LEFT VENTRICULAR HYPERTROPHY WITH STIFF LEFT VENTRICLE, DIASTOLIC DYSFUNCTION EJECTION FRACTION 51%. 2. NORMAL LEFT VENTRICULAR CONTRACTILITY / LEFT VENTRICLE SIZE. 3. CALCIFIC MITRAL VALVE ANNULUS. 4. CALCIFIC AORTIC VALVES, CALCIFIC MILD AORTIC STENOSIS. 5. PLANIMETRY AORTIC ARCH 1.88 cm2. MTDD
[2022-10-05] MEDS ORDERED: ULTRAM PO PRN (14:29)
[2022-10-05] MEDS ORDERED: ZANAFLEX PO PRN (14:29)
[2022-10-05] MEDS ORDERED: EPLERENONE 25 MG PO SCH (14:45)
[2022-10-05] MEDS: PLAVIX PO SCH (14:58)
[2022-10-05] MEDS: AVAPRO PO SCH (14:58)
[2022-10-05] MEDS ORDERED: PROTONIX IV IVP ONE (15:03)
[2022-10-05] MEDS ORDERED: ULTRAM PO ONE (15:03)
[2022-10-05] MEDS ORDERED: MYLANTA SUSP PO ONE (15:44)
[2022-10-05 16:21] LABS: LIPASE 60.4 U/L (23-300)
[2022-10-05] MEDS: PEPCID IVP SCH ×2 (16:26→21:48)
[2022-10-05 16:36] LABS: TROPONIN I < 0.012 ng/ml (0.0000-0.120)
[2022-10-05] MEDS: TYLENOL PO PRN (19:41)
[2022-10-05] MEDS: BUSPAR PO SCH (21:46)
[2022-10-05] MEDS: CRESTOR PO SCH (21:47)
[2022-10-05] MEDS: CATAPRES PO SCH (21:48)
[2022-10-05] MEDS: HUMALOG SUBCUT PRN (21:51)
[2022-10-06 05:31] LABS: BASOPHILS % (AUTO) 0.3 % (0.0-3.0); EOSINOPHILS % (AUTO) 0.7 % (0.0-7.0); HEMATOCRIT 33.1 % (37.0-47.0); IMMATURE GRANULOCYTE % (AUTO) 0.3 % (0.0-5.0); LYMPHOCYTES # (AUTO) 1.3 K/uL (0.60-3.4); LYMPHOCYTES % (AUTO) 22.6 (10.0-50.0); MEAN CORPUSCULAR HEMOGLOBIN 29.2 pg (27.0-31.0); MEAN CORPUSCULAR HGB CONC 30.2 (31.8-35.4); MEAN CORPUSCULAR VOLUME 96.5 fl (81.0-99.0); MONOCYTES # (AUTO) 0.8 K/uL (0.4-2.0); MONOCYTES % (AUTO) 13.9 (0-10); NEUTROPHILS # (AUTO) 3.6 K/ul (2.0-6.9); NEUTROPHILS % (AUTO) 62.2 % (42.2-75.2); PLATELET COUNT 173 10^3/uL (140-440); RDW COEFFICIENT OF VARIATION 16.7 % (11.6-14.8); RED BLOOD COUNT 3.43 10^6/ul (4.20-5.40); WHITE BLOOD COUNT 5.84 K/ul (4.6-10.2)
[2022-10-06 05:46] LABS: ALANINE AMINOTRANSFERASE 16.1 U/L (0-35); ALBUMIN 3.55 g/dL (3.5-5.0); ALKALINE PHOSPHATASE 72.4 U/L (53-141); ASPARTATE AMINO TRANSFERASE 29.2 U/L (14-36); BILIRUBIN,TOTAL 0.79 mg/dL (0.2-1.3); BLOOD UREA NITROGEN 10.7 mg/dL (7-17); CALCIUM 8.13 mg/dL (8.4-10.2); CARBON DIOXIDE 30.6 mmol/L (22-30.0); CHLORIDE 99.8 mmol/L (98-107); CREATININE 0.62 mg/dL (0.60-1.30); GLUCOSE 171.9 mg/dL (74-106); SODIUM 134.4 mmol/L (134.5-145); TOTAL PROTEIN 6.18 g/dL (6.3-8.2)
[2022-10-06] MEDS: HUMALOG SUBCUT PRN ×2 (05:59→21:17)
[2022-10-06 06:05] LABS: TROPONIN I < 0.012 ng/ml (0.0000-0.120)
[2022-10-06 06:18] LABS: HDL CHOLESTEROL 49.6 mg/dL (35-80)
[2022-10-06] MEDS: ASPIRIN EC PO SCH (09:27)
[2022-10-06] MEDS: INSPRA PO SCH (09:28)
[2022-10-06] MEDS: AVAPRO PO SCH (09:28)
[2022-10-06] MEDS: BUSPAR PO SCH ×2 (09:29→20:56)
[2022-10-06] MEDS: PLAVIX PO SCH (09:29)
[2022-10-06] MEDS: PEPCID IVP SCH ×2 (09:31→20:57)
[2022-10-06] MEDS: PROTONIX IV IVP SCH (09:31)
[2022-10-06] MEDS: LANTUS SUBCUT SCH (09:37)
[2022-10-06] MEDS: LOVENOX SUBCUT SCH (09:37)
[2022-10-06] MEDS ORDERED: ATROPINE SULFATE PFS IVP PRN (10:49)
--- NOTE | 2022-10-06 10:53 | DCSUM ---
Admission Date Admission Date: 10/05/22 Discharge Date Discharge Date: 10/07/22 Admission Diagnosis Admission Diagnosis: 1. Chest pain Discharge Diagnosis Discharge Diagnosis: 1. Chest pain - Resolved 2. Hypertensive urgency in setting of pain - Resolved. 3. History of CAD and PAD - Sees [facility]. 4. DMT2, insulin dependent - stable, chronic 5. Hyperlipidemia - stable, chronic 6. Psoriatic arthritis - stable, chronic 7. History of takotsubo cardiomyopathy - chronic 8. Celiac artery stenosis - F/u with vascular outpatient. Has an apt next month. 9. Lung nodules - F/u outpatient, pt aware and states Dr. Leary has been monitoring. Hospital Provider Hospital Provider: DENICE PEREYRA PA-C, [facility] Primary Care Physician Primary Care Physician: ZO LEARY Summary of History and Physical Summary of History and Physical: Patient is a 77-year-old female with past medical history of SD, diabetes, hypertension, vascular disease, psoriatic arthritis, hyperlipidemia who presented to the ER with complaints of chest pain since 5 AM. She describes it as sharp all across her chest radiating to her back and her neck and her left shoulder. She took 3 nitro at home without any relief. She feels like it could be just muscular. In the ER she had a negative work-up. 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 Troponin and EKG negative so far. On my evaluation patient is still complaining of the pain. She states that it improved slightly and now is back. She was also very hypertensive in the ER which has improved. Hospital Course Subjective: Patient continued to have chest pain on day of admission. She had tylenol and ASA in ER. On the floor she was given morphine, zofran, tramadol, pepcid, protonix, mylanta. Her pain finally improved following GI medications. Repeat trops and EKGs were unchanged. Echo did show some diastolic dysfunction with normal EF. Results below. Dobutamine stress echo with cardiolite was ordered and normal, results as below. Pt did not have any chest pain on 10/06 or 10/07. Discharge was delayed due to the cardiolite portion not being read until morning on 10/07. Patient will try tums and pepcid in addition to her regular medications to see if theres improvement if pain returns. She is aware of lung nodules, states her pcp has been following. She sees vascular in the next month and will discuss the celiac artery stenosis mentioned on CT report. She also has a cardiology f/u within the next month. Patient will return with any worsening symptoms. Appearance: Pleasant, No Apparent Distress, Alert, Well-appearing and Well- nourished HEENT: MMM and Supple CVS: Other (+regular rate and rhythm ) Abdomen: Soft, Non-Tender and No Distention Respiratory: No Dyspnea Extremities: No Edema Vital Signs: Most Recent Vital Signs Temperature 98 F 10/06/22 10:00 Temperature Source Oral 10/06/22 10:00 Temperature Source Infrared 10/05/22 06:30 Pulse Rate 72 10/06/22 10:00 Respiratory Rate 18 10/06/22 10:00 Blood Pressure 122/64 10/06/22 10:00 Blood Pressure Mean 83 10/06/22 10:00 Blood Pressure Left Arm 186/79 10/05/22 10:46 Blood Pressure Location Left Arm 10/06/22 10:00 Blood Pressure Position Sitting 10/06/22 10:00 O2 Sat by Pulse Oximetry 94 L 10/06/22 10:00 Oxygen Delivery Method Room Air 10/06/22 10:00 Height 5 ft 6 in 10/05/22 10:46 Weight 181 lb 3.2 oz 10/05/22 10:46 Telemetry Type Remote Telemetry 10/06/22 07:00 Telemetry Monitoring Continues 10/06/22 07:00 Telemetry Heart Rate 71 10/06/22 07:00 EKG ND Interval 0.12 10/06/22 07:00 EKG QRS Interval 0.10 10/06/22 07:00 EKG QT Interval 0.34 10/06/22 01:00 Telemetry Strip Reading SR 10/06/22 07:00 Imaging: EXAM: CHEST RADIOGRAPH TECHNIQUE: Single frontal chest radiograph. HISTORY: Chest pain. COMPARISON: 07/02/2020 FINDINGS: EKG leads project over the chest. No pulmonary infiltrate is identified. No pleural effusion or pneumothorax is seen. Borderline cardiomegaly. No acute displaced rib fractures are identified. IMPRESSION: 1. No acute findings in the chest. EXAM: CHEST CTA WITH CONTRAST (PULMONARY ARTERY) HISTORY: Chest pain. TECHNIQUE: CTA acquisition of the chest from the thoracic inlet to the upper abdomen following IV contrast administration timed to filling of the pulmonary artery. 3D/MIP/VR images were utilized. CT Dose Reduction Techniques Employed: Yes. COMPARISON: 10/17/2014 FINDINGS: Adequate opacification of the pulmonary arteries. No pulmonary embolus is identified. No enlarged mediastinal, hilar, or axillary nodes are identified. 2.3 x 2.1 cm right cardiophrenic angle cyst. Coronary artery calcifications, again noted. Borderline cardiomegaly. No significant pericardial fluid/thickening. No pleural fluid. Visualized portions of the upper abdomen included in this examination of the chest show interval cholecystectomy. Large amount of calcified plaque of the celiac artery origin, resulting in hemodynamically significant stenosis. Lung window images again show mild to moderate emphysema, grossly stable. Stable 1.6 x 1.1 cm irregular parenchymal opacity of the right apex, most consistent with focal fibrosis. Interval development of 4 mm nodule with adjacent tubular structure in the right lower lobe superior segment on image number 50. Interval development of 2 mm nodule in the right lower lobe on image number 78. Mild dependent atelectasis of both lower lobes and mild subsegmental atelectasis with parenchymal bands of the left lower lobe and lingula. No consolidati on or significant ground-glass. Bone window images show no significant lytic or sclerotic bone lesions. IMPRESSION: 1. No pulmonary embolus is identified. 2. No acute findings in the chest. 3. Mild to moderate emphysema, about the same. 4. Interval development of a 4 mm nodule with adjacent tubular structure in the right lower lobe superior segment. Findings might be secondary to mucous plugging. Nodule or obstructing endobronchial lesion also possible. Follow-up CT chest in 3 months is recommended. 5. Interval development of 2 mm nodule in the right lower lobe. Attention to this finding in the follow-up scan as well. 6. 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 CTA abdomen would better assess. Date of Exam: 10/05/2022Ordering Physician: HOSPITALIST DENICE PEREYRA / DR. LEARY Room #: 119 Reason for Echo: CHEST PAIN Murmurs: SYSTOLIC GRADE I/ SYSTOLIC EJECTION MURMUR RIGHT STERNAL BORDER M-Mode Normal Adult Results LV Dimensions Normal Adult Results AoV Opening excursions >1.6 1.4 LVEDD-base- 3.5-5.8 4.8 Ao root dimensions 2.0-3.7 3.4 LVESD-base- 3.1-4.6 L. Atrium dimensions 1.9-3.8 4.3 Post. Wall thickness 0.8-1.1 1.2 IV septum (thickness) 0.7-1.2 1.3 Post. Wall excursion 0.72-1.3 NORMAL Septal motion 0.9 Systolic motion R. Ventricular cavity 1.5-2.0 NORMAL LVEF 60% 51% Paradoxical septal wall motion NORMAL 2-D : ENLARGED LEFT ATRIAL CAVITY, CALCIFIC AORTIC VALVES. GOOD CUSP SEPERATION. LEFT VENTRICULAR CONTRACTILITY NORMAL. LEFT VENTRICLE SIZE NORMAL. NO EFFUSION. NO THROMBUS. PLANIMETRY AORTIC ARCH: 1.88 cm2. M-MODE: MV: CALCIFIC MITRAL VALVE ANNULUS AV: CALCIFIC AORTIC VALVE - MILD AORTIC STENOSIS TV: NORMAL PV: NORMAL CHAMBER SIZE: ENLARGED LEFT ATRIAL CAVITY WALL MOTION: NORMAL PERICARDIUM: NORMAL INTERPRETATION: 1. LEFT VENTRICULAR HYPERTROPHY WITH STIFF LEFT VENTRICLE, DIASTOLIC DYSFUNCTION EJECTION FRACTION 51%. 2. NORMAL LEFT VENTRICULAR CONTRACTILITY / LEFT VENTRICLE SIZE. 3. CALCIFIC MITRAL VALVE ANNULUS. 4. CALCIFIC AORTIC VALVES, CALCIFIC MILD AORTIC STENOSIS. 5. PLANIMETRY AORTIC ARCH 1.88 cm2 Ordering Physician: HOSPITALIST-DENICE PEREYRA / DR. LEARY Date of Test: 10/06/2022 Reason for Examination: CHEST PAIN, DIABETES MELLITUS Smoking History: QUIT 35 YR. AGO Height: 65"Weight: 181Glaucoma: NO Current Medications: ACETAMINOPHEN, ASPIRIN, BUSPIRONE, COREG, VITAMIN D3, CLONIDINE HCL, CLOPIDOGREL, COSENTYX PEN, INSPRA, FOLIC ACID, ICAPS AREDS2, NOVOLOG, BASAGLAR KWIKPEN, AVAPRO, KRILL OIL, METHOTREXATE SODIUM, ONDANSETRON, ACIPHEX, CRESTOR, TIZANIDINE, TRAMADOL Target Heart Rate: 123, MAX HR 145 Oxygen saturation at rest: 96% ON RA, with Dobutamine infusion: 95-97% S-T Segment Stage Time HR BPM BP MMHG Rhythm +/- Elevation Depression Symptoms Control Sitting 70 128/80 SR X NONE Dobutamine 250mg/D5W 5mcg/KG/mn 10mcg/KG/mn 3" 74 122/74 SR X NONE 15mcg/KG/mn 2" 73 132/80 SR X NONE 20mcg/KG/mn 2" 108 184/60 SR X NONE 25mcg/KG/mn 23 sec 114 SR X NONE 30mcg/KG/mn 35mcg/KG/mn 40mcg/KG/mn 1 MIN POST INFUSION 116 208/56 SR X NONE 5 MIN POST INFUSION 104 150/74 SR X NONE 11 MIN POST INFUSION 83 130/70 SR X NONE DURATION OF INFUSION: 7 MINUTES 23 SECONDS MAXIMUM HEART RATE REACHED: 121 Interpretation: 1. TEST NEGATIVE FOR ISCHEMIC ST-T WAVE CHANGES. 2. NO CHEST PAIN OF DISCOMFORT. 3. NORMAL LEFT VENTRICULAR CONTRACTILITY RESTING AND WITH DOBUTAMINE INFUSION. 4. SESTAMIBI TO FOLLOW.. CARDIAC STRESS TEST HISTORY: Chest pain. COMPARISON: None of this type. TECHNIQUE: Resting: The patient was injected with 11.2 millicuries of 99m Tc Sestamibi (Cardiolite) intravenously after which a "resting" SPECT study of the heart was performed. Stress: The patient was stressed pharmacologically with dobutamine and at the appropriate time injected with 30 millicuries of 99m Tc Sestamibi (Cardiolite) intravenously after which a "stress" SPECT study of the heart was performed. Gated images of the heart were also obtained to assess wall motion and calculate ejection fraction. For details of the stress protocol employed, reference is made to the separate report of the performing physician. FINDINGS: The stress perfusion images demonstrate a generally uniform distribution of activity in the left ventricular myocardium. The resting perfusion images demonstrate no evidence of significant redistribution/ischemia. The left ventricular ejection fraction (LVEF) is 68%. IMPRESSION: 1. Left ventricular myocardial perfusion is within normal limits. 2. The left ventricular ejection fraction (LVEF) is 68%. Lab Results Last 24 Hours: 10/06/22 10/05/22 10/05/22 05:17 21:55 16:05 WBC 5.84 RBC 3.43 L Hgb 10.0 L Hct 33.1 L MCV 96.5 MCH 29.2 MCHC 30.2 L RDW Coeff of Anai 16.7 H Plt Count 173 Immature Gran % (Auto) 0.3 Neut % (Auto) 62.2 Lymph % (Auto) 22.6 [place] % (Auto) 13.9 H Eos % (Auto) 0.7 Baso % (Auto) 0.3 Neut # (Auto) 3.6 Lymph # (Auto) 1.3 [place] # (Auto) 0.8 Eos # (Auto) 0.0 Baso # (Auto) 0.0 Immature Gran # (Auto) 0.0 Sodium 134.4 L Potassium 4.50 Chloride 99.8 Carbon Dioxide 30.6 H Anion Gap 8.50 BUN 10.7 Creatinine 0.62 Estimated GFR (MDRD) 94.00 BUN/Creatinine Ratio 17.25 Glucose 171.9 H Hemoglobin A1c 7.34 H Calcium 8.13 L Total Bilirubin 0.79 AST 29.2 ALT 16.1 Alkaline Phosphatase 72.4 Troponin I < 0.012 0.012 < 0.012 Total Protein 6.18 L Albumin 3.55 Globulin 2.63 Albumin/Globulin Ratio 1.34 Triglycerides 207.0 H Cholesterol 100.0 LDL Cholesterol, Calc 9 VLDL Cholesterol 41 H HDL Cholesterol 49.6 Cholesterol/HDL Ratio 2.0 L Lipase 60.4 10/05/22 12:59 WBC RBC Hgb Hct MCV MCH MCHC RDW Coeff of Anai Plt Count Immature Gran % (Auto) Neut % (Auto) Lymph % (Auto) [place] % (Auto) Eos % (Auto) Baso % (Auto) Neut # (Auto) Lymph # (Auto) [place] # (Auto) Eos # (Auto) Baso # (Auto) Immature Gran # (Auto) Sodium Potassium Chloride Carbon Dioxide Anion Gap BUN Creatinine Estimated GFR (MDRD) BUN/Creatinine Ratio Glucose Hemoglobin A1c Calcium Total Bilirubin AST ALT Alkaline Phosphatase Troponin I < 0.012 Total Protein Albumin Globulin Albumin/Globulin Ratio Triglycerides Cholesterol LDL Cholesterol, Calc VLDL Cholesterol HDL Cholesterol Cholesterol/HDL Ratio Lipase Discharge Instructions Discharge Planning: Discharge Planning > [address] Ruben Lau. Discharge Medications: Medications at Discharge (Home Meds & RX) buspirone 5 mg tablet 5 mg PO BID 01/08/14 carvedilol 12.5 mg tablet (Coreg) 12.5 mg PO BID 01/08/14 rosuvastatin 10 mg tablet (Crestor) 10 mg PO BEDTIME 01/08/14 cholecalciferol (vitamin D3) 125 mcg (5,000 unit) tablet 5,000 unit PO BID 03/27/14 clonidine HCl 0.2 mg tablet 0.2 mg PO BEDTIME 03/27/14 eplerenone 25 mg tablet (Inspra) 25 mg PO DAILY 03/27/14 folic acid 1 mg tablet 2 mg PO DAILY 03/27/14 irbesartan 150 mg tablet (Avapro) 150 mg PO DAILY 03/27/14 krill oil 500 mg capsule 500 mg PO BEDTIME 03/27/14 methotrexate sodium 2.5 mg tablet 8 tab PO WEEKLY 03/27/14 rabeprazole 20 mg tablet,delayed release (AcipHex) 20 mg PO BEDTIME 03/27/14 aspirin 81 mg tablet,delayed release (Adult Low Dose Aspirin) 81 mg PO BEDTIME 12/21/17 acetaminophen 500 mg tablet 1,000 mg PO Q6H PRN pain 10/05/22 clopidogrel 75 mg tablet 75 mg PO DAILY 10/05/22 insulin aspart U-100 100 unit/mL (3 mL) subcutaneous pen (Novolog FlexPen U-100 Insulin aspart) 1 sliding scale dose subcut QID PRN ELEVATED BLOOD SUAR 10/05/22 insulin glargine 100 unit/mL (3 mL) subcutaneous pen (Basaglar KwikPen U-100 Insulin) 30 unit subcut DAILY 10/05/22 ondansetron HCl 4 mg tablet 4 mg PO Q8H PRN N/V 10/05/22 secukinumab 150 mg/mL subcutaneous pen injector (Cosentyx Pen 300 mg/2 Pens () 150 mg subcut MONTHLY 10/05/22 tizanidine 2 mg tablet 2 mg PO BEDTIME PRN spasms 10/05/22 tramadol 50 mg tablet 50 mg PO BEDTIME PRN pain 10/05/22 vit C 250 mg-vit E 200 unit-zinc ox 12.5 [id number] capsule (ICaps AREDS2) 1 cap PO BID 10/05/22 Discharge Plan Discharge Discharge Orders: Discharge Patient (ONCE); Ordered 10/07/22 Ordered By: DENICE PEREYRA Activity Restrictions/Additional Instructions: DIAGNOSIS: CHEST PAIN DIET: HEART HEALTHY, DIABETIC ACTIVITY: TOLERATED F/U WITH CARDIOLOGY AND VASCULAR SCHEDULED VASCULAR - CELIAC ARTERY STENOSIS TRY PEPCID/TUMS IN ADDITION TO YOUR GERD MEDICATION RETURN WITH WORSENING SYMPTOMS YOU HAVE A FOLLOW UP APPOINTMENT WITH DR. LEARY ON September AT 10:30AM. SHOULD YOU HAVE ANY QUESTIONS OR NEED TO RESCHEDULE YOU CAN CONTACT THEIR OFFICE AT [phone]. Instructions: Chest Pain (GEN) Patient Disposition: HOME SELF-CARE Prescriptions: Continued buspirone 5 MG tablet 5 mg PO BID carvedilol [Coreg] 12.5 MG tablet 12.5 mg PO BID rosuvastatin [Crestor] 10 MG tablet 10 mg PO BEDTIME clonidine HCl 0.2 MG tablet 0.2 mg PO BEDTIME methotrexate sodium 2.5 MG tablet 8 tab PO WEEKLY Rx Instructions: Take weekly on Wednesday folic acid 1 MG tablet 2 mg PO DAILY irbesartan [Avapro] 150 MG tablet 150 mg PO DAILY eplerenone [Inspra] 25 MG tablet 25 mg PO DAILY cholecalciferol (vitamin D3) 5,000 UNIT tablet 5,000 unit PO BID krill oil 500 MG capsule 500 mg PO BEDTIME aspirin [Adult Low Dose Aspirin] 81 MG tablet,delayed release (DR/EC) 81 mg PO BEDTIME clopidogrel 75 mg tablet 75 mg PO DAILY insulin aspart U-100 [Novolog FlexPen U-100 Insulin] 100 unit/mL (3 mL) insulin pen 1 sliding scale dose SUBCUT QID PRN (Reason: ELEVATED BLOOD SUAR) insulin glargine [Basaglar KwikPen U-100 Insulin] 100 unit/mL (3 mL) insulin pen 30 unit SUBCUT DAILY ondansetron HCl 4 mg tablet 4 mg PO Q8H PRN (Reason: N/V) Cosentyx Pen (2 Pens) 150 mg/mL pen injector 150 mg SUBCUT MONTHLY Rx Instructions: Take on Wednesday of tizanidine 2 mg tablet 2 mg PO BEDTIME PRN (Reason: spasms) Patient Comments: Reports takes nightly tramadol 50 mg tablet 50 mg PO BEDTIME PRN (Reason: pain) ICaps AREDS2 250 mg-200 unit -12.5 mg-1 mg capsule 1 cap PO BID acetaminophen 500 mg tablet 1,000 mg PO Q6H PRN (Reason: pain) Patient Comments: Patient takes 1000mg every night No Action rabeprazole [AcipHex] 20 MG tablet,delayed release (DR/EC) 20 mg PO BEDTIME Did you review [place] [employer] for ALL controlled substances?: Not Applicable Discussed opioids are addictive and Narcan is available by prescription or from pharmacy.: No Condition: Stable
[2022-10-06] MEDS ORDERED: DOBUTAMINE 250 MG-D5W 250 ML 250 MG/250 ML BAG IV SCH (11:00)
--- NOTE | 2022-10-06 12:28 | ECHOSTRESS ---
Date of Exam: 10/06/2022 Ordering Physician: HOSPITALIST - EDNICE PEREYRA / DR. DYSON Reason for Echo: CHEST PAIN, DIABETES MELLITUS, DOBUTAMINE STRESS = NO ISCHEMIA M-Mode Normal Adult Results LV Dimensions Normal Adult Results AoV Opening excursions >1.6 LVEDD-base- 3.5-5.8 Ao root dimensions 2.0-3.7 LVESD-base- 3.1-4.6 L. Atrium dimensions 1.9-3.8 Post. Wall thickness 0.8-1.1 IV septum (thickness) 0.7-1.2 Post. Wall excursion 0.72-1.3 Septal motion Systolic motion R. Ventricular cavity 1.5-2.0 LVEF 60% Paradoxical septal wall motion 2-D: NORMAL LEFT VENTRICULAR CONTRACTILITY RESTING AND DURING DOBUTAMINE INFUSION. M-MODE: MV: AV: TV: PV: CHAMBER SIZE: WALL MOTION: NORMAL LEFT VENTRICULAR CONTRACTILITY RESTING AND DURING DOBUTAMINE INFUSION. PERICARDIUM: INTERPRETATION: 1. NORMAL LEFT VENTRICULAR CONTRACTILITY RESTING AND DURING DOBUTAMINE INFUSION. SESTAMIBI TO FOLLOW. MTDD
--- NOTE | 2022-10-06 12:48 | DOBSTECHST ---
Ordering Physician: HOSPITALIST-DENICE PEREYRA / DR. DYSON Date of Test: 10/06/2022 Reason for Examination: CHEST PAIN, DIABETES MELLITUS Smoking History: QUIT 35 YR. AGO Height: 65" Weight: 181 Glaucoma: NO Current Medications: ACETAMINOPHEN, ASPIRIN, BUSPIRONE, COREG, VITAMIN D3, CLONIDINE HCL, CLOPIDOGREL, COSENTYX PEN, INSPRA, FOLIC ACID, ICAPS AREDS2, NOVOLOG, BASAGLAR KWIKPEN, AVAPRO, KRILL OIL, METHOTREXATE SODIUM, ONDANSETRON, ACIPHEX, CRESTOR, TIZANIDINE, TRAMADOL Target Heart Rate: 123, MAX HR 145 Oxygen saturation at rest: 96% ON RA, with Dobutamine infusion: 95-97% S-T Segment Stage Time HR BPM BP MMHG Rhythm +/- Elevation Depression Symptoms Control Sitting 70 128/80 SR X NONE Dobutamine 250mg/D5W 5mcg/KG/mn 10mcg/KG/mn 3" 74 122/74 SR X NONE 15mcg/KG/mn 2" 73 132/80 SR X NONE 20mcg/KG/mn 2" 108 184/60 SR X NONE 25mcg/KG/mn 23 sec 114 SR X NONE 30mcg/KG/mn 35mcg/KG/mn 40mcg/KG/mn 1 MIN POST INFUSION 116 208/56 SR X NONE 5 MIN POST INFUSION 104 150/74 SR X NONE 11 MIN POST INFUSION 83 130/70 SR X NONE DURATION OF INFUSION: 7 MINUTES 23 SECONDS MAXIMUM HEART RATE REACHED: 121 Interpretation: 1. TEST NEGATIVE FOR ISCHEMIC ST-T WAVE CHANGES. 2. NO CHEST PAIN OF DISCOMFORT. 3. NORMAL LEFT VENTRICULAR CONTRACTILITY RESTING AND WITH DOBUTAMINE INFUSION. 4. SESTAMIBI TO FOLLOW. MTDD
[2022-10-06] MEDS: TYLENOL PO PRN (14:59)
--- NOTE | 2022-10-06 19:14 | PCM.PROG ---
Date/Time Seen Date Seen by Provider: 10/06/22 Time Seen by Provider: 13:00 Provider Provider: DENICE PEREYRA PA-C, [facility] Chief Complaint Chief Complaint: CHEST PAIN Subjective Subjective: Patient has not had any chest pain since 0200. Only complains of back pain from lying on the imaging table today. No n/v. Trops and ekg unchanged. Pt feels the GI meds may have helped but it did not feel like gi related pain. Objective Appearance: Positive Well-appearing, Well-nourished, No Apparent Distress and Alert and Oriented x3 Chest/Lungs: Positive Clear to Auscultation Bilaterally; Negative Rales, Rhonci or Wheezes Heart: Positive RRR GI/: Positive Soft, Nontender and Bowel Sounds Normal Neurological: Positive Cranial Nerves Intact, Alert, Oriented and Muscle Strength 5/5 in Upper and Lower Extremities Bilaterally Vital Signs Vital Signs: Vital Signs: Last 24 Hours 10/05/22 21:20 10/06/22 01:00 10/06/22 02:00 Temperature 98.6 F 98.5 F Temperature Source Temporal Artery Scan Oral Pulse Rate 71 67 Respiratory Rate 16 18 Blood Pressure 117/54 L 90/45 L Blood Pressure Mean 75 60 Blood Pressure Location Left Arm Right Arm Blood Pressure Position Supine Supine O2 Sat by Pulse Oximetry 91 L 93 L Oxygen Delivery Method Room Air Room Air Telemetry Type Remote Telemetry Telemetry Monitoring Continues Telemetry Heart Rate 65 EKG MI Interval 0.19 EKG QRS Interval 0.09 EKG QT Interval 0.34 Telemetry Strip Reading NSR no ectopy noted 10/06/22 05:21 10/06/22 07:00 10/06/22 18:00 Temperature 97.9 F 98.2 F Temperature Source Oral Oral Pulse Rate 80 78 Respiratory Rate 16 19 Blood Pressure 140/71 128/76 Blood Pressure Mean 94 93 Blood Pressure Location Left Arm Left Arm Blood Pressure Position Sitting Sitting O2 Sat by Pulse Oximetry 94 L 95 Oxygen Delivery Method Room Air Room Air Telemetry Type Remote Telemetry Telemetry Monitoring Continues Telemetry Heart Rate 71 EKG MI Interval 0.12 EKG QRS Interval 0.10 EKG QT Interval Telemetry Strip Reading SR 10/06/22 08:00 10/06/22 10:00 10/06/22 13:00 Temperature 98 F Temperature Source Oral Pulse Rate 72 Respiratory Rate 18 Blood Pressure 122/64 Blood Pressure Mean 83 Blood Pressure Location Left Arm Blood Pressure Position Sitting O2 Sat by Pulse Oximetry 94 L Oxygen Delivery Method Room Air Room Air Telemetry Type Remote Telemetry Telemetry Monitoring Continues Telemetry Heart Rate 74 EKG MI Interval 0.15 EKG QRS Interval 0.09 EKG QT Interval Telemetry Strip Reading SR 10/06/22 14:00 Temperature 97.1 F L Temperature Source Oral Pulse Rate 82 Respiratory Rate 20 Blood Pressure 148/69 H Blood Pressure Mean 95 Blood Pressure Location Left Arm Blood Pressure Position Sitting O2 Sat by Pulse Oximetry 95 Oxygen Delivery Method Room Air Telemetry Type Telemetry Monitoring Telemetry Heart Rate EKG MI Interval EKG QRS Interval EKG QT Interval Telemetry Strip Reading Lab Results Lab Results: Lab Results: Last 24 Hours 10/06/22 10/05/22 05:17 21:55 WBC 5.84 RBC 3.43 L Hgb 10.0 L Hct 33.1 L MCV 96.5 MCH 29.2 MCHC 30.2 L RDW Coeff of Anai 16.7 H Plt Count 173 Immature Gran % (Auto) 0.3 Neut % (Auto) 62.2 Lymph % (Auto) 22.6 Wetzel % (Auto) 13.9 H Eos % (Auto) 0.7 Baso % (Auto) 0.3 Neut # (Auto) 3.6 Lymph # (Auto) 1.3 Wetzel # (Auto) 0.8 Eos # (Auto) 0.0 Baso # (Auto) 0.0 Immature Gran # (Auto) 0.0 Sodium 134.4 L Potassium 4.50 Chloride 99.8 Carbon Dioxide 30.6 H Anion Gap 8.50 BUN 10.7 Creatinine 0.62 Estimated GFR (MDRD) 94.00 BUN/Creatinine Ratio 17.25 Glucose 171.9 H Hemoglobin A1c 7.34 H Calcium 8.13 L Total Bilirubin 0.79 AST 29.2 ALT 16.1 Alkaline Phosphatase 72.4 Troponin I < 0.012 0.012 Total Protein 6.18 L Albumin 3.55 Globulin 2.63 Albumin/Globulin Ratio 1.34 Triglycerides 207.0 H Cholesterol 100.0 LDL Cholesterol, Calc 9 VLDL Cholesterol 41 H HDL Cholesterol 49.6 Cholesterol/HDL Ratio 2.0 L Additional Comments Additional Comments: I have independently reviewed and interpreted the labs/EKGs/imaging ordered during this hospital stay. I have reviewed outside records that are available in our EMR that pertain to medical stay including imaging/notes/labs from previous visits. Active Medications Active Medications: Medications Generic Name Dose Route Start Last Admin Trade Name Kandis PRN Reason Stop Dose Admin Acetaminophen 650 mg 10/05/22 10:13 10/06/22 14:59 Acetaminophen 325 Mg Tablet PO 650 mg Q4H PRN Administration pain Aspirin 81 mg 10/06/22 08:30 10/06/22 09:27 Aspirin 81 Mg Tablet.Dr PO 81 mg DAILYWM CLEM Administration Buspirone HCl 5 mg 10/05/22 21:00 10/06/22 09:29 Buspirone Hcl 10 Mg Tablet PO 5 mg BID CLEM Administration Clonidine 0.2 mg 10/05/22 21:00 10/05/22 21:48 Clonidine Hcl 0.1 Mg Tablet PO 0.2 mg BEDTIME CLEM Administration Clopidogrel Bisulfate 75 mg 10/05/22 14:35 10/06/22 09:29 Clopidogrel Bisulfate 75 Mg Tablet PO 75 mg DAILY CLEM Administration Enoxaparin Sodium 40 mg 10/06/22 09:00 10/06/22 09:37 Enoxaparin Sodium 40 Mg/0.4 Ml Syr SUBCUT Not Given DAILY CLEM Eplerenone 25 mg 10/06/22 09:00 10/06/22 09:28 Eplerenone 25 Mg Tablet PO 25 mg DAILY CLEM Administration Famotidine 20 mg 10/05/22 16:00 10/06/22 09:31 Famotidine Inj 20 Mg/2 Ml Vial IVP 20 mg Q12HR CLEM Administration Hydralazine HCl 10 mg 10/05/22 11:29 Hydralazine Hcl 20 Mg/Ml Sdv IVP Q6H PRN Hypertension Insulin Glargine 30 unit 10/06/22 09:00 10/06/22 09:37 Insulin Glargine,Hum.Rec.Anlog 100 Units/Ml SUBCUT Not Given DAILY CLEM Insulin Human Lispro 0 unit 10/05/22 11:29 10/06/22 05:59 Insulin Lispro 100 Unit/Ml (3 Ml) Vial SUBCUT 3 unit PRN PRN Administration Hyperglycemia Protocol Irbesartan 150 mg 10/05/22 15:00 10/06/22 09:28 Irbesartan 150 Mg Tablet PO 150 mg DAILY CLEM Administration Morphine Sulfate 2 mg 10/05/22 12:49 10/05/22 13:18 Morphine Sulfate 2 Mg/Ml Syringe IVP 2 mg Q6H PRN Administration Pain Nitroglycerin 0.4 mg 10/05/22 10:13 Nitroglycerin 0.4 Mg Tab.Subl SL Q5MIN X 3 DOSES PRN Chest Pain Ondansetron HCl 4 mg 10/05/22 12:49 10/05/22 13:16 Ondansetron Hcl/Pf 4 Mg/2 Ml Sdv IVP 4 mg Q6H PRN Administration Nausea / Vomiting Pantoprazole Sodium 40 mg 10/06/22 09:00 10/06/22 09:31 Pantoprazole Sodium 40 Mg Vial IVP 40 mg DAILY CLEM Administration Rosuvastatin Calcium 10 mg 10/05/22 21:00 10/05/22 21:47 Rosuvastatin Calcium 10 Mg Tablet PO 10 mg BEDTIME CLEM Administration Sodium Chloride 1 syr 10/05/22 06:34 10/05/22 07:00 0.9% Sodium Chloride 10 Ml Disp.Syrin IVF 1 syr PRN PRN Administration To flush IV Sodium Chloride 1 syr 10/05/22 13:00 10/06/22 13:26 0.9% Sodium Chloride 10 Ml Disp.Syrin IVF 1 syr Q8HR CLEM Administration Tizanidine HCl 2 mg 10/05/22 14:29 Tizanidine Hcl 4 Mg Tablet PO BEDTIME PRN muscle spasms Tramadol HCl 50 mg 10/05/22 14:29 Tramadol Hcl 50 Mg Tablet PO BEDTIME PRN pain Plan Plan: 1. Chest pain - Resolved. Trops remained undetectable, EKGs unchanged. Nitro prn for chest pain. Dobutamine stress echo normal but awaiting nuclear medicine results. Continue protonix and pepcid. 2. Hypertensive urgency - Resolved. Home meds ordered. Hydralazine IV prn w/ parameters ordered. 3. History of CAD and PAD - Sees [facility]. Continue home meds. 4. DMT2, insulin dependent - Continue home insulin, humalog sliding scale, accuchecks achs. 5. Hyperlipidemia - Continue home meds 6. Psoriatic arthritis - Continue home meds 7. History of takotsubo cardiomyopathy - Continue home meds 8. Celiac artery stenosis - F/u with vascular outpatient. Has an apt next month. 9. Lung nodules - F/u outpatient, pt aware and states Dr. Leary has been monitoring. DVT: Lovenox Dispo: Discharge delayed today as nuclear medicine test not read yet. Pt understands it may be tomorrow before it is read and she is discharged. Pt is high risk for an abnormal test and therefore needs to stay until it is read. Review Statement Review Statement: I have personally discussed and reviewed the patient's visit/currently labs/imaging/decision making with Dr. Lau, my supervising attending. Greater that 50 minutes spent with patient, 50% of the time spent with this patient was devoted to counseling and coordination of care.
[2022-10-06] MEDS: CATAPRES PO SCH (20:56)
[2022-10-06] MEDS: CRESTOR PO SCH (20:56)
[2022-10-07 05:16] LABS: BASOPHILS % (AUTO) 0.2 % (0.0-3.0); EOSINOPHILS # (AUTO) 0.1 K/ul (0.0-0.7); EOSINOPHILS % (AUTO) 0.9 % (0.0-7.0); HEMATOCRIT 32.4 % (37.0-47.0); HEMOGLOBIN 9.7 g/dl (12.0-16.0); IMMATURE GRANULOCYTE % (AUTO) 0.2 % (0.0-5.0); LYMPHOCYTES # (AUTO) 1.8 K/uL (0.60-3.4); LYMPHOCYTES % (AUTO) 32.2 (10.0-50.0); MEAN CORPUSCULAR HGB CONC 29.9 (31.8-35.4); MEAN CORPUSCULAR VOLUME 96.7 fl (81.0-99.0); MONOCYTES # (AUTO) 0.8 K/uL (0.4-2.0); MONOCYTES % (AUTO) 13.4 (0-10); NEUTROPHILS % (AUTO) 53.1 % (42.2-75.2); PLATELET COUNT 177 10^3/uL (140-440); RDW COEFFICIENT OF VARIATION 16.6 % (11.6-14.8); RED BLOOD COUNT 3.35 10^6/ul (4.20-5.40); WHITE BLOOD COUNT 5.59 K/ul (4.6-10.2)
[2022-10-07 05:29] LABS: ALANINE AMINOTRANSFERASE 15.8 U/L (0-35); ALBUMIN 3.53 g/dL (3.5-5.0); ALKALINE PHOSPHATASE 72.4 U/L (53-141); ASPARTATE AMINO TRANSFERASE 23.1 U/L (14-36); BILIRUBIN,TOTAL 0.51 mg/dL (0.2-1.3); BLOOD UREA NITROGEN 15.4 mg/dL (7-17); CALCIUM 8.09 mg/dL (8.4-10.2); CARBON DIOXIDE 29.6 mmol/L (22-30.0); CHLORIDE 102.5 mmol/L (98-107); CREATININE 0.66 mg/dL (0.60-1.30); GLUCOSE 180.9 mg/dL (74-106); POTASSIUM 4.68 mmol/L (3.5-5.1); SODIUM 136.1 mmol/L (134.5-145); TOTAL PROTEIN 6.2 g/dL (6.3-8.2)
[2022-10-07] MEDS: PLAVIX PO SCH (08:41)
[2022-10-07] MEDS: BUSPAR PO SCH (08:41)
[2022-10-07] MEDS: INSPRA PO SCH (08:41)
[2022-10-07] MEDS: ASPIRIN EC PO SCH (08:42)
[2022-10-07] MEDS: AVAPRO PO SCH (08:42)
[2022-10-07] MEDS: LANTUS SUBCUT SCH (08:43)
[2022-10-07] MEDS: LOVENOX SUBCUT SCH (08:47)
--- NOTE | 2022-10-07 09:22 | NM ---
CARDIAC STRESS TEST HISTORY: Chest pain. COMPARISON: None of this type. TECHNIQUE: Resting: The patient was injected with 11.2 millicuries of 99m Tc Sestamibi (Cardiolite) intravenous ly after which a "resting" SPECT study of the heart was performed. Stress: The patient was stressed pharmacologically with dobutamine and at the appropriate time injec renee with 30 millicuries of 99m Tc Sestamibi (Cardiolite) intravenously after which a "stress" SPECT study of the heart was performed. Gated images of the heart were also obtained to assess wall motion and calculate ejection fraction. For details of the stress protocol employed, reference is made to the separate report of the performing physician. FINDINGS: The stress perfusion images demonstrate a generally uniform distribution of activity in th e left ventricular myocardium. The resting perfusion images demonstrate no evidence of significant redistribution/ischemia. The left ventricular ejection fraction (LVEF) is 68%. IMPRESSION: 1. Left ventricular myocardial perfusion is within normal limits. 2. The left ventricular ejection fraction (LVEF) is 68%.
[2022-10-07] MEDS: PROTONIX IV IVP SCH (09:33)
[2022-10-07] MEDS: PEPCID IVP SCH (09:33)
[2022-10-07 09:45] VITALS: RESP 18
[2022-10-07 10:01] VITALS: BP 162/70; PULSE 62; TEMP 97.9
== END 2022-10-07 10:30 | disposition home or self-care (01) ==
LOC: MEDSURG B 06:29 → ED 06:29 → MEDSURG B 10:45
PROVIDERS: ADMIT Hospitalist; ATTEND Physician Assistant
DX: I25.2 Old myocardial infarction; R07.9 Chest pain, unspecified; I10 Essential (primary) hypertension; I73.9 Peripheral vascular disease, unspecified; R91.8 Other nonspecific abnormal finding of lung field; J43.9 Emphysema, unspecified; I25.10 Atherosclerotic heart disease of native coronary artery without angina pectoris; L40.52 Psoriatic arthritis mutilans; Z79.4 Long term (current) use of insulin; Z51.81 Encounter for therapeutic drug level monitoring; Z79.899 Other long term (current) drug therapy; I77.4 Celiac artery compression syndrome; E78.5 Hyperlipidemia, unspecified; I51.81 Takotsubo syndrome; E11.65 Type 2 diabetes mellitus with hyperglycemia; I16.0 Hypertensive urgency